=== PATIENT | female | born 1995 | race Caucasian/White ===

== ENCOUNTER → 2021-11-22 | Outpatient (CLI) | payer OTHER, SELFPAY ==
[2021-11-26 07:06] LABS: Chlamydia By Nucleic Acid AMP Negative (Negative)
[2021-11-26 10:20] LABS: Gonococcus By Nucleic Acid AMP Negative (Negative)
[2021-11-28 13:21] LABS: HPV Reflexed? NOT INDICATED
== END | disposition home or self-care (01) ==
PROVIDERS: Visit Provider Obstetrics & Gynecology
DX: Z34.90 Encounter for supervision of normal pregnancy, unspecified, unspecified trimester (principal); Z12.4 Encounter for screening for malignant neoplasm of cervix
CPT/HCPCS: 87086; 87088; 87491; 87591; 88175; G0145

== ENCOUNTER → 2021-12-19 | Outpatient (CLI) | payer OTHER, SELFPAY ==
[2021-12-19 09:16] LABS: Absolute Lymphocyte Count 1.82 X10^3/uL (0.83-4.51); Absolute Neutrophil Count 6.5 X10^3/uL (2.0-7.7); Basophil# 0.05 X10^3/uL; Basophil% 0.5 % (0-1); Eosinophil# 0.24 X10^3/uL; Eosinophils% 2.6 % (0-5); Hematocrit 39.7 % (37-47); Hemoglobin 13.5 g/dL (12.0-15.0); Lymphocyte # 1.82 X10^3/ul (0.83-4.51); Lymphocyte % 19.3 % (19-41); Mean Corpuscular Hgb 31.5 pg (27.0-32.0); Mean Corpuscular Volume 92.5 fL (81-99); Mean Platelet Vol. 10.5 fl (6.2-12.0); Monocyte# 0.71 X10^3/uL; Monocyte% 7.5 % (0-10); NRBC Flagged by Analyzer 0 % (0-5); Neutrophil # 6.51 X10^3/uL (2.7-7.7); Neutrophil % 69.2 % (47-70); Platelet Count 194 K/mm3 (150-450); RBC Distribution Width CV 12.2 % (11.6-14.6); RBC Distribution Width SD 41.1 fl (35.1-43.9); Red Blood Count 4.29 M/mm3 (4.2-5.4); White Blood Count 9.4 K/mm3 (4.4-11.0)
[2021-12-19 10:27] LABS: HIV - WCH Non-Reactive (Nonreactive); Hepatitis B Surface Antigen Non-Reactive (Nonreactive); Hepatitis C Antibody Non-Reactive (Nonreactive); Rubella IgG Reactive (Nonreactive); Syphilis Antibodies Non-reactive
[2021-12-19 10:27] LABS: Amphetamine Urine VISTA NEGATIVE (<1000 ng/mL); Barbiturate Urine VISTA NEGATIVE (< 200 ng/mL); Benzodiazepine Urine VISTA NEGATIVE (< 200 ng/mL); Cocaine Urine VISTA NEGATIVE (< 300 ng/mL); Ecstacy Urine VISTA NEGATIVE (< 500 ng/mL); Methadone Urine VISTA NEGATIVE (< 300 ng/mL); PCP Urine VISTA NEGATIVE (< 25 ng/mL); THC Urine VISTA POSITIVE (< 50 ng/mL); Vista UDS pH Range 6
== END | disposition home or self-care (01) ==
PROVIDERS: Nurse Practitioner Women's Health; Referring Provider Obstetrics & Gynecology; Visit Provider Obstetrics & Gynecology
DX: Z34.90 Encounter for supervision of normal pregnancy, unspecified, unspecified trimester (principal)
CPT/HCPCS: 36415; 80307; 85025; 86703; 86762; 86780; 86803; 86850; 86900; 86901; 87340

== ENCOUNTER → 2021-12-26 | Outpatient (CLI) | payer OTHER, SELFPAY ==
--- NOTE | 2021-12-26 07:20 | US_ITS ---
STUDY: SECOND AND THIRD TRIMESTER OBSTETRICAL ULTRASOUND REASON FOR EXAM: Female, 26 years old routine survey LMP: Unknown. TECHNIQUE: Transabdominal TECHNICAL QUALITY: Adequate. PRIOR ULTRASOUND: None. FINDINGS: There is a single intrauterine fetus. The fetus is in a breech presentation. There is demonstrated cardiac activity with a heart rate of 136 bpm. There is a subjectively normal amniotic fluid volume. The largest amniotic fluid pocket measures 5.9 cm. The placenta is fundal in location. There is 1.4 cm from the internal os, follow-up recommended to ensure normal migration away from the cervix. There are Grade 0 placental changes. The cervix measures 3.5 cm in length. The bilateral adnexal regions are normal. BIOMETRY: BPD: 4.23 cm: 18 weeks, 6 days HC: 16.06 cm: 18 weeks, 6 days AC: 13.17cm: 18 weeks, 5 days FL: 2.81cm: 18 weeks, 4 days age by current US: 18 weeks, 6 days. CHANDNI by current US: 05/23/22. Estimated weight: 252 grams, +/- 38 grams, 7 %. Age by LMP: 19 weeks, 5 days. CHANDNI by LMP: 05/17/22. ANATOMY: Gender: Male Cranium: Normal lateral ventricles. Normal choroid plexus. Normal cerebellum. Normal cisterna magna. Normal face, nose and lips. Chest: Normal 4-chamber heart. Abdomen/Pelvis: Normal diaphragm. Normal stomach. Normal abdominal wall. Normal cord insertion. Dispensing Optician Apprentice suggests a two-vessel cord.. Limited views of the kidneys. Normal bladder. Spine: Normal cervical spine. Normal thoracic spine. Normal lumbar spine. Limited views of the sacrum. Extremities: Normal bilateral upper extremities. Normal bilateral lower extremities. US/OB Anatomy Scan IMPRESSION: Single live intrauterine at 18 weeks, 6 days by current ultrasound with CHANDNI of 05/23/2022. Heart rate of 136 bpm, presentation is breech. EFW measures only in the 7th percentile, there is no sonographic explanation for the low weight. Placenta is fundal but only measuring 1.4 cm from the os, short-term follow-up is recommended to ensure normal migration away from the cervix Some anatomy such as sacrum and kidneys are not well visualized and there is also sonographic evidence to suspect a two-vessel cord. Recommend short-term follow-up ultrasound to reevaluate these anatomical structures. Electronically Signed: Tj Lozano MD at 9:42 EDT ,
== END | disposition home or self-care (01) ==
PROVIDERS: Visit Provider Nurse Practitioner Women's Health
DX: Z34.90 Encounter for supervision of normal pregnancy, unspecified, unspecified trimester (principal)
CPT/HCPCS: 76805; 76817

== ENCOUNTER → 2022-01-16 | Outpatient (CLI) | payer OTHER, SELFPAY ==
[2022-01-16 18:08] LABS: Amphetamine Urine VISTA NEGATIVE (<1000 ng/mL); Barbiturate Urine VISTA NEGATIVE (< 200 ng/mL); Benzodiazepine Urine VISTA NEGATIVE (< 200 ng/mL); Cocaine Urine VISTA NEGATIVE (< 300 ng/mL); Ecstacy Urine VISTA NEGATIVE (< 500 ng/mL); Methadone Urine VISTA NEGATIVE (< 300 ng/mL); PCP Urine VISTA NEGATIVE (< 25 ng/mL); THC Urine VISTA POSITIVE (< 50 ng/mL); Vista UDS pH Range 5
== END | disposition home or self-care (01) ==
PROVIDERS: Visit Provider Nurse Practitioner Women's Health
DX: O99.320 Drug use complicating pregnancy, unspecified trimester (principal); F12.90 Cannabis use, unspecified, uncomplicated; Z3A.00 Weeks of gestation of pregnancy not specified
CPT/HCPCS: 80307

== ENCOUNTER → 2022-02-25 | Outpatient (CLI) | payer OTHER, SELFPAY ==
[2022-02-25 09:01] LABS: Absolute Lymphocyte Count 1.91 X10^3/uL (0.83-4.51); Basophil# 0.06 X10^3/uL; Basophil% 0.5 % (0-1); Eosinophil# 0.22 X10^3/uL; Eosinophils% 1.8 % (0-5); Hematocrit 37.4 % (37-47); Hemoglobin 12.7 g/dL (12.0-15.0); Lymphocyte # 1.91 X10^3/ul (0.83-4.51); Lymphocyte % 15.7 % (19-41); Mean Corpuscular Hgb 31.8 pg (27.0-32.0); Mean Corpuscular Volume 93.5 fL (81-99); Mean Platelet Vol. 10.8 fl (6.2-12.0); Monocyte# 0.74 X10^3/uL; Monocyte% 6.1 % (0-10); NRBC Flagged by Analyzer 0 % (0-5); Neutrophil # 9.02 X10^3/uL (2.7-7.7); Neutrophil % 74.3 % (47-70); Platelet Count 202 K/mm3 (150-450); RBC Distribution Width CV 12.4 % (11.6-14.6); RBC Distribution Width SD 43.1 fl (35.1-43.9); White Blood Count 12.2 K/mm3 (4.4-11.0)
[2022-02-25 09:22] LABS: Glucose Challenge Gest 1H 50g 69 mg/dL (70-140)
[2022-02-25 09:50] LABS: NATERA MAILED SPECIMEN
[2022-02-25 09:58] LABS: Syphilis Antibodies Non-reactive
[2022-02-25 10:16] LABS: Amphetamine Urine VISTA NEGATIVE (<1000 ng/mL); Barbiturate Urine VISTA NEGATIVE (< 200 ng/mL); Benzodiazepine Urine VISTA NEGATIVE (< 200 ng/mL); Cocaine Urine VISTA NEGATIVE (< 300 ng/mL); Ecstacy Urine VISTA NEGATIVE (< 500 ng/mL); Methadone Urine VISTA NEGATIVE (< 300 ng/mL); PCP Urine VISTA NEGATIVE (< 25 ng/mL); THC Urine VISTA POSITIVE (< 50 ng/mL); Vista UDS pH Range 7
== END | disposition home or self-care (01) ==
LOC: PAVLAB 08:17
PROVIDERS: Obstetrics & Gynecology; Referring Provider Nurse Practitioner Women's Health; Visit Provider Nurse Practitioner Women's Health
DX: Z34.82 Encounter for supervision of other normal pregnancy, second trimester (principal)
CPT/HCPCS: 36415; 80307; 82950; 85025; 86780

== ENCOUNTER 2022-03-16 13:35 | Outpatient (CLI) | payer OTHER, SELFPAY ==
[2022-03-16] VITALS (37 sets, daily range): BP systolic 111–137; BP diastolic 53–83; PULSE 63–91; RESP 17; TEMP 36.6–37.5; O2SAT 92–100; BMI 23.2
[2022-03-16] MEDS: Lactated Ringers 1,000 ML 15 ML IV (14:45)
[2022-03-16] MEDS: Magnesium Sulfate 4gm/100mL 4 GM/100 ML IV.SOLN. IV (14:45)
[2022-03-16] MEDS: Indomethacin 25 MG Capsule 100 MG PO (14:53)
[2022-03-16] MEDS: Betamethasone/Betamethasone 30 MG/5 ML Vial 12 MG IM (14:54)
[2022-03-16 14:55] LABS: Mucous, Urine 0 SEEN /hpf (<or=2+); Red Blood Cells-Urine 0 SEEN /hpf (0-5)
[2022-03-16 14:56] LABS: Absolute Neutrophil Count 12.4 X10^3/uL (2.0-7.7); Basophil# 0.06 X10^3/uL; Basophil% 0.4 % (0-1); Eosinophil# 0.15 X10^3/uL; Hemoglobin 13.5 g/dL (12.0-15.0); Lymphocyte % 9.2 % (19-41); Mean Corp Hgb Conc 35.5 g/dL (32-36); Mean Corpuscular Hgb 32.8 pg (27.0-32.0); Mean Corpuscular Volume 92.2 fL (81-99); Mean Platelet Vol. 11.4 fl (6.2-12.0); Monocyte# 1.04 X10^3/uL; Monocyte% 6.8 % (0-10); NRBC Flagged by Analyzer 0 % (0-5); Neutrophil # 12.42 X10^3/uL (2.7-7.7); Neutrophil % 81.8 % (47-70); Platelet Count 195 K/mm3 (150-450); RBC Distribution Width CV 12.4 % (11.6-14.6); RBC Distribution Width SD 41.5 fl (35.1-43.9); Red Blood Count 4.12 M/mm3 (4.2-5.4); White Blood Count 15.2 K/mm3 (4.4-11.0)
[2022-03-16 14:56] LABS: Color, Urine Yellow (Yellow); Glucose, Dipstick Normal (Normal); Ketone-Dipstick Negative (Negative); Leukocyte Esterase-Dipstick 25 /ul (Negative); Nitrite-Dipstick Negative (Negative); Occult Blood-Urine 50 /ul (Negative); Protein-Dipstick Negative (Negative); Specific Gravity, Urine 1.025 (1.002-1.030); Urine Bilirubin Dipstick Negative (Negative); Urine Clarity Sl. Cloudy (Clear); Urine Urobilinogen Normal (Normal)
[2022-03-16 15:01] LABS: Bacteria RARE /hpf (None Seen); Squamous Epithelial Cells - UA 10-25 SEEN /hpf (5-10); White Blood Cells 0-5 SEEN /hpf (0-5)
[2022-03-16] MEDS: Magnesium Sulfate 20 GM/500 ML BAG IV (15:02)
--- NOTE | 2022-03-16 15:08 | OB.TRI.HP_ITS ---
HPI - General HPI Narrative KEE PEREZ, is a 26 F who presents in labor with pelvic pain and contractions, small vb no lof good fm. she has had a complicated by 2 VC and marginal insertion of the cord. Maternal Data Information CHANDNI Calculator Estimated Delivery Date Method Current WG Current Estimate 05/17/22 LMP (Certain) 31w 1d PFSH PFSH Medical History (Updated 03/16/22 @ 15:[address] 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 [employer] current occupational exposures/hazards: Yes pets and animals: Yes pets and animals: dog(s) and farm animals history of recent travel: No sexually active: Yes Smoking Status: Former smoker Tobacco: How many years used: 9 second hand exposure: No alcohol intake: former details: daily, 3 shots to 2 beers substance use type: marijuana well-balanced diet: about half the time caffeine: No during the past year weight has: remained stable what type of physical activity do you participate in: none chase/temple: None seatbelt use: never do you feel safe at home: Yes additional social history: GILBERT Nieto History 2 Elective abortions 1 Hx Para 0 Spontaneous abortions Hx # Term Pregnancies Ectopic pregnancies Hx # Pregnancies Multiple births # of living children 0 Visit Details Expected Delivery Route/Plan Labor Preferences- CB/BF classes: no/enc labor support person: Gerson labor intervention preferences: [] pain management options preferred: limited if possible cut cord/dad catch: yes : yes PP control planned: discussed discussed possible routes of delivery and associated risks: [] special requests: [] Plans Covid status: discussed Flu vaccine: discussed Tdap vaccine: no Rhogam: na LARC form signed: yes Problem list reviewed and updated with the most current plan of care details and appropriate orders placed. Relevant counseling for the gestational age provided. Continue routine care and follow up unless otherwise noted in visit notes/problem list details OB Flowsheet Initial Weight: Not Recorded Date -?-?-?-?-?-?-?-?-?-?-?-?- EGA Weight BP Urine Prot -?-?-?-?-?-?-?-?-?-?-?-?- Glucose FHR FuHt Pres Dilation -?-?-?-?-?-?-?-?-?-?-?-?- Effaced St Visit Note 10/22/21 -?-?-?-?-?-?-?-?-?-?-?-?- 10w 3d 152 lb 2 oz 106/61 -?-?-?-?-?-?-?-?-?-?-?-?- 170 -?-?-?-?-?-?-?-?-?-?-?-?- SM- CRL 2.7cm co ns with LMP 11/22/21 -?-?-?-?-?-?-?-?-?-?-?-?- 14w 6d 153 lb 4 oz 93/55 Nega tive -?-?-?-?-?-?-?-?-?-?-?-?- Negative 155 -?-?-?-?-?-?--?-?-?-?-?-?- JV- pap, gc, and breast exam. 12/19/21 -?-?-?-?-?-?-?-?-?-?-?-?- 18w 5d 158 lb 120/72 Negative -?-?-?-?-?-?-?-?-?-?-?-?- Negative 154 -?-?-?-?-?-?-?-?-?-?-?-?- MH-Denies VB, cr amping. No FM yet. Tox screen today. Missed anatomy scan. Enc importance of labs, anatomy US. Will get labs today and rescheduled US 01/16/22 -?-?-?-?-?-?-?-?-?-?-?-?- 22w 5d 157 lb 6 oz 122/72 Nega tive -?-?-?-?-?-?-?-?-?-?-?-?- Negative 156 -?-?-?-?-?-?-?-?-?-?-?-?- MH-No VB. Bhumika mayer Counseled on marijuana use. Has growwth US with MFM tomorrow. 02/15/22 -?-?-?-?-?-?-?-?-?-?-?-?- 27w 0d 157 lb 133/74 Negative -?-?-?-?-?-?-?-?-?-?-?-?- Negative 145 -?-?-?-?-?-?-?-?-?-?-?-?- JV- pt non compl iant with recommended testing including GCT. after long discussion I recommended GCT, cbc, and recommended 3rd trimester syphillis testing. She states that if she is going to do that she wants to do the NIPT test as mfm recommended due to 2 vessel cord. q 4 week ultrasounds to e performed and she is due next week. she is not aware of this scan. JV- pt non compliant with re commended testing including GCT. after long discussion I recommended GCT, cbc, and recommended 3rd trimester syphillis testing. She states that if she is going to do that she wants to do the NIPT test as mfm recommended due to 2 vessel cord. q 4 week ultrasounds to e perfo rmed and she is due next week. she is not aware of this scan. pt continues to climb ladders and swing hammers and lift heavy things despite our strong recommendations to not do these things. 02/25/22 -?-?-?-?-?-?-?-?-?-?-?-?- 28w 3d 168 lb 2 oz 112/74 Nega tive -?-?-?-?-?-?-?-?-?-?-?-?- Negative 144 -?-?-?-?-?-?-?-?-?-?-?-?- MH-No VB, LOF. G ood FM. Larc,28wk labs. Declines flu, tdap.She has stopped with heavy lifting. Avoid more that 2-3 step ladders now. 03/13/22 -?-?-?-?-?-?-?-?-?-?-?-?- 30w 5d 164 lb 8 oz 110/68 -?-?-?-?-?-?-?-?-?-?-?-?- 135 29 -?-?-?-?-?-?-?-?-?-?-?-?- LC- no vb,ctx,lo f. great FM. has u/s scheduled with MFM for follow up scheduled. 03/16/22 -?-?-?-?-?-?-?-?-?-?-?-?- 31w 1d 157 lb 4 oz 111/53 136/66 136/66 125/75 125/75 Negative mg/dl (Nega tive) -?-?-?-?-?-?-?-?-?-?-?-?- -?-?-?-?-?-?-?-?-?-?-?-?- ROS Constitutional Constitutional: Reports systems reviewed and no addt'l complaints, except as documented and as per HPI ENT HEENT: Reports systems reviewed and no addt'l complaints, except as documented Cardiovascular Cardiovascular: Reports systems reviewed and no addt'l complaints, except as documented Respiratory/Chest Respiratory/Chest: Reports systems reviewed and no addt'l complaints, except as documented Gastrointestinal Gastrointestinal: Reports as per HPI Genitourinary Genitourinary: Reports as per HPI Musculoskeletal Musculoskeletal: Reports systems reviewed and no addt'l complaints, except as documented Integumentary Integumentary: Reports systems reviewed and no addt'l complaints, except as documented Neurologic Neurologic: Reports systems reviewed and no addt'l complaints, except as documented Physical Exam Const alert, oriented x3 and no apparent distress HEENT Head and Scalp: normocephalic and atraumatic Neck full ROM and no lymphadenopathy Chest inspection of chest normal Resp normal respiratory effort GI GI Narrative: gravid, abdomen nontender, AGA Manual OB Exam: dilated 3.5/90/-1 bloody show bulging bag, effaced and station NST FHR Rate Baby A Baseline: 130 Variability:: Moderate Accelerations:: 15 x 15 Decelerations:: None NST Reactive:: Yes FHR Category:: Category I Uterine Activity:: regular q 2-4 Assessment & Plan (1) labor: COMMENT: indocin started for tocolysis, magnesium sulfate for neuroprotection, and ampicillin for gbs prophylaxis. celestone given for prematurity at 1445 (2) Supervision of low-risk : COMMENT: PRR , CHANDNI 05/17/22, boy gerson Nieto (3) : QUALIFIERS: Weeks of gestation: 30 weeks Qualified Code(s): Z3A.30 - 30 weeks gestation of COMMENT: anatomy nl, Declines NIPT & Carrier testing. (4) Marijuana use: COMMENT: Random tox screen; counseled; Positive NOB, 01/16/22, 02/26 + cannabinoid test. (5) Two vessel cord: COMMENT: growth US Q4 wk (6) Marginal insertion of umbilical cord: COMMENT: Growth US q4 week; MFM US 01/17; sched with MFM. Missed Nov US. Has next one 03/19 PLAN: Plan see s/p comments. transport to [facility] for labor management due to gestational age. Charges/Coding Multi Select Codes Visit Charges Office Visit/Consults: 40779 OV L3 Est Urinary/Genital Urinary/Genital CPT Codes: 68132-88 non-stress test Interp
[2022-03-16 16:57] LABS: Amphetamine Urine VISTA NEGATIVE (<1000 ng/mL); Barbiturate Urine VISTA NEGATIVE (< 200 ng/mL); Benzodiazepine Urine VISTA NEGATIVE (< 200 ng/mL); Cocaine Urine VISTA NEGATIVE (< 300 ng/mL); Ecstacy Urine VISTA NEGATIVE (< 500 ng/mL); Methadone Urine VISTA NEGATIVE (< 300 ng/mL); PCP Urine VISTA NEGATIVE (< 25 ng/mL); THC Urine VISTA POSITIVE (< 50 ng/mL); Vista UDS pH Range 5
== END 2022-03-16 16:55 | disposition home or self-care (01) ==
LOC: WPOUT 13:40 → WP 13:41
PROVIDERS: Visit Provider Obstetrics & Gynecology
DX: O60.03 Preterm labor without delivery, third trimester (principal); O43.193 Other malformation of placenta, third trimester; O99.323 Drug use complicating pregnancy, third trimester; F12.90 Cannabis use, unspecified, uncomplicated; Z87.891 Personal history of nicotine dependence; Z3A.30 30 weeks gestation of pregnancy
CPT/HCPCS: 36415; 59025; 59050; 76815; 80307; 81001; 85025; 86850; 86900; 86901; 87086; 96372; 99218; J7120; G0378; J0702